=== PATIENT | male | born 1995 | race Caucasian/White ===

== ENCOUNTER → 2024-07-02 | Outpatient (CLI) | payer OTHER ==
--- NOTE | 2024-07-02 15:34 | XR ---
EXAMINATION TYPE: XR lumbosacral spine min 4V DATE OF EXAM: 07/02/2024 3:25 PM COMPARISON: None. CLINICAL INDICATION: Male, 28 years old with history of M54.50, M50.30, pain TECHNIQUE: 5 view(s) obtained. FINDINGS: There are 5 lumbar-type vertebral bodies. Pedicles are intact. No spondylolytic defects are evident. Facets are normal. Disc heights are preserved. Vertebral body heights are preserved. IMPRESSION: 1. No acute osseous abnormality lumbar spine [facility], , 07/02/2024 3:32 PM
--- NOTE | 2024-07-02 15:57 | XR ---
EXAMINATION TYPE: XR cervical spine comp DATE OF EXAM: 07/02/2024 3:25 PM COMPARISON: None. CLINICAL INDICATION: Male, 28 years old with history of M54.50, M50.30, pain TECHNIQUE: 5 view(s) obtained. FINDINGS: There is narrowing of the C5-6 disc space. Vertebral body heights are preserved. Remaining disc heigh ts are preserved. Prevertebral space is normal. Posterior spinal lamellar line is intact. Foramen are patent. Odontoid is nondiagnostic with overlying maxilla IMPRESSION: 1. Mild degenerative disc change C5-6. [facility], , 07/02/2024 3:55 PM
== END | disposition home or self-care (01) ==
LOC: RADXRMAIN 14:53
PROVIDERS: ATTEND Family Medicine
DX: M50.322 Other cervical disc degeneration at C5-C6 level (principal); M54.50 Low back pain, unspecified
CPT/HCPCS: 72050; 72110